=== PATIENT | male | born 1940 | race African-American/Black ===

== ENCOUNTER 2019-02-10 21:57 | Inpatient (IN) ==
[2019-02-11] MEDS ORDERED: GLUCAGON 1 MG VIAL IM PRN ×3 (00:29→12:43)
[2019-02-11] MEDS ORDERED: ACETAMINOPHEN 325 MG TABLET PO PRN (00:29)
[2019-02-11] MEDS ORDERED: DEXTROSE 50% 25 GM/50 ML VIAL IV PRN ×3 (00:29→12:43)
[2019-02-11] MEDS ORDERED: DOCUSATE SODIUM 100 MG CAPSULE PO PRN (00:29)
[2019-02-11] MEDS ORDERED: MORPHINE 4 MG/1 ML VIAL IV PRN (00:29)
[2019-02-11] MEDS ORDERED: ONDANSETRON 4 MG/2 ML VIAL IV PRN (00:29)
[2019-02-11] MEDS ORDERED: SODIUM CHLORIDE 0.9% 1,000 ML IV SCH ×2 (01:00→13:00)
[2019-02-11] MEDS ORDERED: ENOXAPARIN 80 MG/0.8 ML SYRINGE SUBCUT SCH ×3 (01:00→21:00)
[2019-02-11] MEDS ORDERED: PNEUMOCOCCAL VACCINE (13 VALENT) 0.5 ML SYRINGE IM ONE (01:24)
[2019-02-11] MEDS: INSULIN REGULAR 100 UNIT/ML SUBCUT SCH ×5 (01:57→21:10)
[2019-02-11 05:01] LABS: Basophils % 0.8 % (0.0-0.8); Eosinophils # 0.3 10*3/uL (0.0-0.87); Eosinophils % 5.4 % (0.00-10.9); Hematocrit 31.3 VOL% (42.0-52.0); Hemoglobin 9.8 GM/DL (14.0-18.0); Immature Granulocytes % 0.4 %; Immature Granulocytes Absolute 0.02 #; Lymphocytes # 1.9 10*3/uL (1.4-4.0); Lymphocytes % 34.9 % (21.2-54.2); Mean Corpuscular HGB Conc 31.3 GM/DL (32-36); Mean Corpuscular Volume 96.6 FL (87-102); Mean Platelet Volume 12.8 FL (9.6-12.0); Monocytes % 9.8 % (1.7-12.7); Neutrophils % 48.7 % (38.7-73.9); Platelet Count 121 T/CUMM (130-400); Red Blood Count 3.24 MC/CUMM (3.8-5.5); Red Cell Distribution Width 13.3 % (9.3-17.3); White Blood Count 5.3 T/CUMM (4-12)
[2019-02-11 05:39] LABS: Calcium 8.3 MG/DL (8.5-10.1); Osmolality,Calculated 296.3 MOS/KG (273-304)
[2019-02-11] MEDS ORDERED: MAGNESIUM SULF RIDER 2 GM in PREMIX 1 EACH IV PRN (07:09)
[2019-02-11] MEDS ORDERED: POTASSIUM CHLORIDE RIDER 10 MEQ in PREMIX 1 EACH IV PRN (07:09)
[2019-02-11] MEDS ORDERED: oxyCODONE/ACETAMINOPHEN 5-325 MG TABLET PO PRN (07:46)
[2019-02-11] MEDS ORDERED: DIAZEPAM 5 MG TABLET PO ONE (07:59)
[2019-02-11] MEDS ORDERED: diphenhydrAMINE CAP 25 MG CAPSULE PO ONE (07:59)
[2019-02-11] MEDS: SODIUM CHLORIDE 0.9% 1,000 ML IV SCH ×2 (08:09→13:05)
[2019-02-11 08:21] LABS: Calcium 8.1 MG/DL (8.5-10.1); Osmolality,Calculated 293.3 MOS/KG (273-304)
[2019-02-11 08:40] LABS: Alanine Aminotransferase 15 U/L (16-61); Albumin 2.9 G/DL (3.4-5.0); Alkaline Phosphatase 69 U/L (45-117); Aspartate Amino Transferase 25 U/L (0-37); Bilirubin,Direct < 0.100 MG/DL (0.0-0.20); Bilirubin,Indirect 0.3 MG/DL (0.0-1.0); Bilirubin,Total < 0.39 MG/DL (0.2-1.0); Total Protein 5.5 G/DL (6.4-8.3)
[2019-02-11 08:41] LABS: Risk Ratio 3.12; VLDL CHOLESTEROL 17.4 MG/DL
[2019-02-11] MEDS ORDERED: LOSARTAN 50 MG TABLET PO SCH (09:00)
[2019-02-11] MEDS ORDERED: METOPROLOL TARTRATE 50 MG TABLET PO SCH (09:00)
[2019-02-11] MEDS ORDERED: LISINOPRIL 20 MG TABLET PO SCH (09:00)
[2019-02-11] MEDS ORDERED: ERGOCALCIFEROL 50,000 UNIT CAPSULE PO SCH (09:00)
[2019-02-11] MEDS ORDERED: ATORVASTATIN 40 MG TABLET PO SCH (09:00)
[2019-02-11] MEDS: NICOTINE 21 MG/24 HR PATCH TRANSDERM SCH (11:03)
[2019-02-11] MEDS: ASPIRIN EC 81 MG TABLET PO SCH (11:03)
[2019-02-11] MEDS: amLODIPine 10 MG TABLET PO SCH (11:03)
[2019-02-11] MEDS: BUDESONIDE/FORMOTEROL 80-4.5 INHALER 6.9 GM INH SCH ×2 (11:03→21:10)
[2019-02-11] MEDS: CLOPIDOGREL 75 MG TABLET PO SCH (11:03)
[2019-02-11] MEDS: glipiZIDE 5 MG TABLET PO SCH ×2 (11:04→22:48)
[2019-02-11] MEDS: PANTOPRAZOLE 40 MG TABLET PO SCH (11:04)
[2019-02-11] MEDS: ATORVASTATIN 40 MG TABLET PO SCH (11:04)
[2019-02-11] MEDS: GABAPENTIN 300 MG CAPSULE PO SCH (11:04)
[2019-02-11] MEDS ORDERED: LIDOCAINE 1% 20 ML VIAL ONE (11:31)
[2019-02-11] MEDS ORDERED: MIDAZOLAM 2 MG/2 ML VIAL ONE (11:31)
[2019-02-11] MEDS ORDERED: fentaNYL 100 MCG/2 ML VIAL ONE (11:31)
[2019-02-11] MEDS ORDERED: VERAPAMIL 5 MG/2 ML VIAL ONE (11:40)
[2019-02-11] MEDS ORDERED: NITROGLYCERIN DRIP 50 MG/250 ML BOTTLE IV ONE (11:40)
[2019-02-11] MEDS ORDERED: ENOXAPARIN 60 MG/0.6 ML SYRINGE ONE (11:58)
[2019-02-11] MEDS ORDERED: TIROFIBAN 5,000 MCG/100 ML PREMIX IV ONE (12:00)
[2019-02-11] MEDS ORDERED: TIROFIBAN 5,000 MCG/100 ML PREMIX IV SCH (12:07)
[2019-02-11] MEDS ORDERED: CLOPIDOGREL 300 MG TABLET ONE (12:31)
[2019-02-11] MEDS: METOPROLOL TARTRATE 25 MG TABLET PO SCH ×2 (15:17→21:10)
[2019-02-11] MEDS ORDERED: SILVER NITRATE STICK 1 EACH TOP ONE (17:26)
[2019-02-11] MEDS ORDERED: COCAINE SUBSTITUTE 30 ML BOTTLE TOP ONE (17:28)
[2019-02-11] MEDS ORDERED: LIDOCAINE 2% TOP JELLY 20 ML VIAL INTRAURETH ONE (17:45)
[2019-02-11] MEDS ORDERED: hydrALAZINE 20 MG/1 ML VIAL IV ONE (18:00)
[2019-02-12 05:55] LABS: Basophils % 0.4 % (0.0-0.8); Eosinophils # 0.2 10*3/uL (0.0-0.87); Eosinophils % 2.8 % (0.00-10.9); Hematocrit 36.4 VOL% (42.0-52.0); Hemoglobin 11.5 GM/DL (14.0-18.0); Immature Granulocytes % 0.4 %; Immature Granulocytes Absolute 0.03 #; Lymphocytes # 1.5 10*3/uL (1.4-4.0); Lymphocytes % 21.1 % (21.2-54.2); Mean Corpuscular HGB Conc 31.6 GM/DL (32-36); Mean Platelet Volume 13.1 FL (9.6-12.0); Monocytes % 10.2 % (1.7-12.7); Neutrophils % 65.1 % (38.7-73.9); Platelet Count 143 T/CUMM (130-400); Red Blood Count 3.79 MC/CUMM (3.8-5.5); Red Cell Distribution Width 13.2 % (9.3-17.3); White Blood Count 7.1 T/CUMM (4-12)
[2019-02-12 06:39] LABS: Blood Urea Nitrogen 17 MG/DL (7-18); Calcium 8.5 MG/DL (8.5-10.1); Glucose 115 MG/DL (74-106); Osmolality,Calculated 290.7 MOS/KG (273-304)
[2019-02-12 06:43] LABS: % Iron Saturation 18.8 % (18-50); Ferritin 39.1 ng/ml (26-388)
[2019-02-12 07:52] VITALS: BP 193/85
[2019-02-12] MEDS: NICOTINE 21 MG/24 HR PATCH TRANSDERM SCH (08:35)
[2019-02-12] MEDS: glipiZIDE 5 MG TABLET PO SCH (08:35)
[2019-02-12] MEDS: ASPIRIN EC 81 MG TABLET PO SCH (08:35)
[2019-02-12] MEDS: ATORVASTATIN 40 MG TABLET PO SCH (08:35)
[2019-02-12] MEDS: INSULIN REGULAR 100 UNIT/ML SUBCUT SCH ×2 (08:36→12:23)
[2019-02-12] MEDS: PANTOPRAZOLE 40 MG TABLET PO SCH (08:36)
[2019-02-12] MEDS: amLODIPine 10 MG TABLET PO SCH (08:36)
[2019-02-12] MEDS: CLOPIDOGREL 75 MG TABLET PO SCH (08:36)
[2019-02-12] MEDS: GABAPENTIN 300 MG CAPSULE PO SCH (08:36)
[2019-02-12] MEDS: METOPROLOL TARTRATE 25 MG TABLET PO SCH (08:36)
[2019-02-12] MEDS: BUDESONIDE/FORMOTEROL 80-4.5 INHALER 6.9 GM INH SCH (08:37)
[2019-02-12] MEDS ORDERED: PRAZOSIN 1 MG CAPSULE PO SCH (09:00)
== END 2019-02-12 12:45 | disposition home or self-care (01) | DRG 247 ==
LOC: N.TELES → SUATTDRO 23:25
PROVIDERS: ADMIT Internal Medicine; ATTEND Family Medicine
PROC: CLCCHCL (ICD-10-PCS; 2019-02-11 09:45)

== ENCOUNTER 2021-06-04 06:55 | Inpatient (IN) ==
[2021-06-04 07:25] LABS: Basophils # 0.1 10*3/uL (0.0-0.2); Basophils % 0.9 % (0.0-0.8); Eosinophils # 0.3 10*3/uL (0.0-0.87); Eosinophils % 6.2 % (0.00-10.9); Hemoglobin 9.6 GM/DL (14.0-18.0); Immature Granulocytes % 0.4 %; Immature Granulocytes Absolute 0.02 #; Lymphocytes # 1.1 10*3/uL (1.4-4.0); Lymphocytes % 21.6 % (21.2-54.2); Mean Platelet Volume 11.1 FL (9.6-12.0); Monocytes % 10.4 % (1.7-12.7); Neutrophils % 60.5 % (38.7-73.9); Platelet Count 186 T/CUMM (130-400); Red Blood Count 3.19 MC/CUMM (3.8-5.5); Red Cell Distribution Width 13.8 % (9.3-17.3); White Blood Count 5.3 T/CUMM (4-12)
[2021-06-04 07:46] LABS: Osmolality,Calculated 288.5 MOS/KG (273-304); Potassium 5.2 MMOL/L (3.5-5.1)
[2021-06-04] MEDS ORDERED: GABAPENTIN 400 MG CAPSULE PO ONE (08:05)
[2021-06-04] MEDS ORDERED: FAMOTIDINE 20 MG TABLET PO ONE (08:05)
[2021-06-04] MEDS ORDERED: LACTATED RINGERS 1,000 ML IV SCH ×2 (08:30→13:00)
[2021-06-04] MEDS ORDERED: fentaNYL 100 MCG/2 ML VIAL ONE (10:35)
[2021-06-04] MEDS ORDERED: LIDOCAINE 2% 5 ML VIAL ONE (10:36)
[2021-06-04] MEDS ORDERED: ONDANSETRON 4 MG/2 ML VIAL ONE (10:36)
[2021-06-04] MEDS ORDERED: ROCURONIUM 50 MG/5 ML VIAL IV ONE (10:36)
[2021-06-04] MEDS ORDERED: propofoL 200 MG/20 ML VIAL IV ONE (10:36)
[2021-06-04] MEDS ORDERED: DEXAMETHASONE 4 MG/1 ML VIAL ONE ×2 (10:37→17:17)
[2021-06-04] MEDS ORDERED: BUPIVACAINE MPF 0.25% 30 ML VIAL ONE (10:39)
[2021-06-04] MEDS ORDERED: LIDOCAINE 1%/EPI INJ 20 ML VIAL ONE (10:39)
[2021-06-04] MEDS ORDERED: ePHEDrine 50 MG/ML VIAL ONE (11:19)
[2021-06-04] MEDS ORDERED: DESFLURANE 1 UNIT/15 MINUTE INH ONE (11:43)
[2021-06-04] MEDS ORDERED: HYDROmorphone 2 MG/1 ML VIAL IV PRN ×2 (12:18)
[2021-06-04] MEDS ORDERED: ONDANSETRON 4 MG/2 ML VIAL IV PRN (12:18)
[2021-06-04] MEDS ORDERED: ACETAMINOPHEN 325 MG TABLET PO PRN (12:18)
[2021-06-04] MEDS ORDERED: BISACODYL 5 MG TABLET PO PRN (12:18)
[2021-06-04] MEDS ORDERED: ALBUTEROL/IPRATROPIUM 3 ML NEB RESP TX PRN (12:18)
[2021-06-04] MEDS ORDERED: INFLUENZA VIRUS VACCINE 0.5 ML SYRINGE IM ONE (13:02)
[2021-06-04] MEDS: SODIUM CHLORIDE 0.9% 1,000 ML IV SCH ×2 (13:31→18:32)
[2021-06-04] MEDS: GABAPENTIN 300 MG CAPSULE PO SCH ×2 (14:52→21:20)
[2021-06-04] MEDS ORDERED: diphenhydrAMINE 50 MG/1 ML VIAL IV ONE (16:24)
[2021-06-04] MEDS ORDERED: MORPHINE 2 MG/1 ML SYRINGE IV PRN ×2 (16:27→16:32)
[2021-06-04] MEDS ORDERED: FAMOTIDINE 20 MG/2 ML VIAL IV ONE ×2 (17:24→17:28)
[2021-06-04] MEDS: METOPROLOL TARTRATE 25 MG TABLET PO SCH (21:20)
[2021-06-04] MEDS: ATORVASTATIN 40 MG TABLET PO SCH (21:20)
[2021-06-04] MEDS: PRAZOSIN 1 MG CAPSULE PO SCH (21:20)
[2021-06-05] MEDS: SODIUM CHLORIDE 0.9% 1,000 ML IV SCH ×3 (02:32→19:02)
[2021-06-05 06:29] LABS: Basophils % 0.2 % (0.0-0.8); Hematocrit 31.7 VOL% (42.0-52.0); Hemoglobin 9.7 GM/DL (14.0-18.0); Immature Granulocytes % 0.3 %; Immature Granulocytes Absolute 0.03 #; Lymphocytes # 0.6 10*3/uL (1.4-4.0); Mean Corpuscular HGB Conc 30.6 GM/DL (32-36); Mean Corpuscular Volume 95.2 FL (87-102); Mean Platelet Volume 11.8 FL (9.6-12.0); Monocytes % 5.4 % (1.7-12.7); Neutrophils % 87.1 % (38.7-73.9); Platelet Count 174 T/CUMM (130-400); Red Blood Count 3.33 MC/CUMM (3.8-5.5); Red Cell Distribution Width 13.8 % (9.3-17.3); White Blood Count 9.1 T/CUMM (4-12)
[2021-06-05 06:51] LABS: Calcium 8.9 MG/DL (8.5-10.1); Osmolality,Calculated 294.5 MOS/KG (273-304); Potassium 5.6 MMOL/L (3.5-5.1)
[2021-06-05 07:08] LABS: % Iron Saturation 8.4 % (18-50); Ferritin 125.3 ng/mL (26-388)
[2021-06-05] MEDS: amLODIPine 10 MG TABLET PO SCH (10:00)
[2021-06-05] MEDS: ASPIRIN CHEW 81 MG TABLET PO SCH (10:00)
[2021-06-05] MEDS: GABAPENTIN 300 MG CAPSULE PO SCH ×3 (10:00→20:18)
[2021-06-05] MEDS: METOPROLOL TARTRATE 25 MG TABLET PO SCH ×2 (10:00→20:18)
[2021-06-05] MEDS: PRAZOSIN 1 MG CAPSULE PO SCH ×2 (10:00→20:18)
[2021-06-05] MEDS: PANTOPRAZOLE 40 MG TABLET PO SCH (10:00)
[2021-06-05 10:28] LABS: Calcium 8.9 MG/DL (8.5-10.1); Osmolality,Calculated 298.1 MOS/KG (273-304)
[2021-06-05 10:30] LABS: Potassium 6.1 MMOL/L (3.5-5.1)
[2021-06-05] MEDS ORDERED: FUROSEMIDE 100 MG/10 ML VIAL IV ONE ×2 (14:45→16:00)
[2021-06-05] MEDS: ATORVASTATIN 40 MG TABLET PO SCH (20:18)
[2021-06-06] MEDS: SODIUM CHLORIDE 0.9% 1,000 ML IV SCH ×3 (03:22→21:36)
[2021-06-06 06:15] LABS: Calcium 8.5 MG/DL (8.5-10.1); Osmolality,Calculated 304.7 MOS/KG (273-304); Potassium 4.9 MMOL/L (3.5-5.1)
[2021-06-06] MEDS: amLODIPine 10 MG TABLET PO SCH ×2 (08:24→08:35)
[2021-06-06] MEDS: PRAZOSIN 1 MG CAPSULE PO SCH ×3 (08:24→21:30)
[2021-06-06] MEDS: ASPIRIN CHEW 81 MG TABLET PO SCH (08:24)
[2021-06-06] MEDS: GABAPENTIN 300 MG CAPSULE PO SCH ×3 (08:24→21:31)
[2021-06-06] MEDS: METOPROLOL TARTRATE 25 MG TABLET PO SCH ×2 (08:24→21:30)
[2021-06-06] MEDS: PANTOPRAZOLE 40 MG TABLET PO SCH (08:24)
[2021-06-06] MEDS: ATORVASTATIN 40 MG TABLET PO SCH (21:30)
[2021-06-07] MEDS: SODIUM CHLORIDE 0.9% 1,000 ML IV SCH (05:49)
[2021-06-07] MEDS: amLODIPine 10 MG TABLET PO SCH (09:10)
[2021-06-07] MEDS: METOPROLOL TARTRATE 25 MG TABLET PO SCH ×2 (09:10→20:57)
[2021-06-07] MEDS: ASPIRIN CHEW 81 MG TABLET PO SCH (09:10)
[2021-06-07] MEDS: GABAPENTIN 300 MG CAPSULE PO SCH ×3 (09:10→20:56)
[2021-06-07] MEDS: PRAZOSIN 1 MG CAPSULE PO SCH ×2 (09:10→20:56)
[2021-06-07] MEDS: PANTOPRAZOLE 40 MG TABLET PO SCH (09:10)
[2021-06-07] MEDS ORDERED: GLUCAGON 1 MG VIAL IM PRN (09:41)
[2021-06-07] MEDS ORDERED: DEXTROSE 50% 25 GM/50 ML VIAL IV PRN (09:41)
[2021-06-07] MEDS ORDERED: NICOTINE 14 MG/24 HR PATCH TRANSDERM PRN (09:47)
[2021-06-07] MEDS: INSULIN LISPRO 100 UNIT/ML SUBCUT SCH ×3 (12:12→20:54)
[2021-06-07 16:40] LABS: Bacteria,Urine Occasional /HPF (Few); Bilirubin,Urine Negative (Negative); Blood, Urine Negative (Negative); Glucose,Urine (UA) 50 mg/dL (Negative); Hyaline Casts,Urine 1 /LPF (0-3); Ketones,Urine Negative (Negative); Mucus,Urine Occasional /LPF (Occasional); Nitrite,Urine Negative (Negative); Protein,Urine Negative; RBC,Urine <1 /HPF (0-4); Squamous Epithelial Cell,Urine Occasional /HPF (0-10); Urine Appearance CLEAR (Clear); Urine Color Straw (Yellow); Urine Specific Gravity 1.009 (1.001-1.035); Urine Urobilinogen < 2.0 EU/DL (0.2-1.0)
[2021-06-07] MEDS: ATORVASTATIN 40 MG TABLET PO SCH (20:56)
[2021-06-08 05:36] LABS: Basophils % 0.5 % (0.0-0.8); Eosinophils # 0.3 10*3/uL (0.0-0.87); Hematocrit 25.9 VOL% (42.0-52.0); Hemoglobin 8.3 GM/DL (14.0-18.0); Immature Granulocytes % 0.5 %; Immature Granulocytes Absolute 0.03 #; Lymphocytes % 16.5 % (21.2-54.2); Mean Corpuscular Volume 93.5 FL (87-102); Mean Platelet Volume 12.3 FL (9.6-12.0); Neutrophils % 68.5 % (38.7-73.9); Platelet Count 148 T/CUMM (130-400); Red Blood Count 2.77 MC/CUMM (3.8-5.5); Red Cell Distribution Width 14.2 % (9.3-17.3); White Blood Count 6.3 T/CUMM (4-12)
[2021-06-08 06:03] LABS: Calcium 8.7 MG/DL (8.5-10.1); Potassium 4.1 MMOL/L (3.5-5.1)
[2021-06-08] MEDS: INSULIN LISPRO 100 UNIT/ML SUBCUT SCH ×3 (08:09→16:50)
[2021-06-08] MEDS: METOPROLOL TARTRATE 25 MG TABLET PO SCH (08:43)
[2021-06-08] MEDS: GABAPENTIN 300 MG CAPSULE PO SCH ×2 (08:43→16:05)
[2021-06-08] MEDS: PANTOPRAZOLE 40 MG TABLET PO SCH (08:44)
[2021-06-08] MEDS: ASPIRIN CHEW 81 MG TABLET PO SCH (08:44)
[2021-06-08] MEDS: amLODIPine 10 MG TABLET PO SCH (08:44)
[2021-06-08] MEDS: PRAZOSIN 1 MG CAPSULE PO SCH (08:44)
[2021-06-08 11:40] VITALS: BP 130/73
[2021-06-08] MEDS ORDERED: INFLUENZA VIRUS VACCINE 0.5 ML SYRINGE IM ONE (17:30)
== END 2021-06-08 17:20 | disposition home health service (06) | DRG 330 ==
LOC: N.3E 06:55 → N.OR 06:55 → N.SDSINP 06:57 → N.3E 12:43 → N.ICU 17:50 → N.3E 06-05 14:49 → SUATTDRO 06-05 15:59
PROVIDERS: ADMIT Surgery; ATTEND Surgery

== ENCOUNTER 2021-11-03 09:24 | Inpatient (IN) ==
[2021-11-03 11:47] LABS: Basophils % 0.5 % (0.0-0.8); Eosinophils # 0.1 10*3/uL (0.0-0.87); Eosinophils % 1.2 % (0.00-10.9); Hemoglobin 11.5 GM/DL (14.0-18.0); Immature Granulocytes % 0.9 %; Immature Granulocytes Absolute 0.04 #; Lymphocytes # 0.2 10*3/uL (1.4-4.0); Lymphocytes % 5.6 % (21.2-54.2); Mean Corpuscular HGB Conc 31.9 GM/DL (32-36); Mean Platelet Volume 11.5 FL (9.6-12.0); Monocytes % 8.5 % (1.7-12.7); Neutrophils % 83.3 % (38.7-73.9); Platelet Count 158 T/CUMM (130-400); Red Blood Count 3.83 MC/CUMM (3.8-5.5); White Blood Count 4.3 T/CUMM (4-12)
[2021-11-03 11:55] LABS: Mucus,Urine Occasional /LPF (Occasional); RBC,Urine 2 /HPF (0-4); Squamous Epithelial Cell,Urine Occasional /HPF (0-10)
[2021-11-03 11:56] LABS: Bilirubin,Urine Negative (Negative); Blood, Urine Trace mg/dL (Negative); Glucose,Urine (UA) Negative (Negative); Ketones,Urine Negative (Negative); Nitrite,Urine Negative (Negative); Protein,Urine 1+ mg/dL (Negative); Urine Appearance Clear (Clear); Urine Color Yellow (Yellow); Urine Urobilinogen 0.2 eU/dL (<2.0)
[2021-11-03 11:57] LABS: PT Patient Result 11.6 SECS (10.5-12.0)
[2021-11-03 12:24] LABS: Albumin 3.3 G/DL (3.4-5.0); Bilirubin,Total 1.1 MG/DL (0.20-1.00); Calcium 9.1 MG/DL (8.5-10.1); Osmolality,Calculated 293.7 MOS/KG (273-304); Potassium 5.3 MMOL/L (3.5-5.1); Total Protein 7.3 G/DL (6.4-8.2)
[2021-11-03] MEDS ORDERED: SODIUM CHLORIDE 0.9% 1,000 ML IV STA (13:08)
[2021-11-03] MEDS ORDERED: DEXAMETHASONE 4 MG/1 ML VIAL IV STA (15:21)
[2021-11-03] MEDS ORDERED: ONDANSETRON 4 MG/2 ML VIAL IV PRN (18:41)
[2021-11-03] MEDS ORDERED: GLUCAGON 1 MG VIAL IM PRN (18:41)
[2021-11-03] MEDS ORDERED: ACETAMINOPHEN 325 MG TABLET PO PRN (18:41)
[2021-11-03] MEDS ORDERED: DEXTROSE 50% 25 GM/50 ML VIAL IV PRN (18:50)
[2021-11-03] MEDS ORDERED: DOCUSATE SODIUM 100 MG CAPSULE PO PRN (18:51)
[2021-11-03] MEDS ORDERED: NICOTINE 21 MG/24 HR PATCH TRANSDERM PRN (18:51)
[2021-11-03] MEDS ORDERED: traZODone 50 MG TABLET PO PRN (18:51)
[2021-11-03] MEDS ORDERED: LEVOFLOXACIN INJ 500 MG/100 ML PREMIX IV ONE (19:00)
[2021-11-03] MEDS ORDERED: DEXTROSE 10% 250 ML BAG IV PRN (19:33)
[2021-11-03] MEDS: hydrALAZINE 20 MG/1 ML VIAL IV PRN (22:01)
[2021-11-03] MEDS ORDERED: SODIUM CHLORIDE 0.45% 1,000 ML IV SCH (22:30)
[2021-11-03] MEDS: INSULIN GLARGINE 100 UNIT/ML SUBCUT SCH (23:11)
[2021-11-03] MEDS: INSULIN REGULAR 100 UNIT/ML SUBCUT SCH (23:11)
[2021-11-04] MEDS: ENOXAPARIN 40 MG/0.4 ML SYRINGE SUBCUT SCH ×2 (02:00→21:20)
[2021-11-04] MEDS: HYDROmorphone 1 MG/1 ML SYRINGE IV PRN ×2 (05:22→11:16)
[2021-11-04 05:24] LABS: Basophils % 0.5 % (0.0-0.8); Eosinophils % 0.2 % (0.00-10.9); Hematocrit 31.9 VOL% (42.0-52.0); Hemoglobin 10.1 GM/DL (14.0-18.0); Immature Granulocytes % 0.7 %; Immature Granulocytes Absolute 0.03 #; Lymphocytes # 0.2 10*3/uL (1.4-4.0); Lymphocytes % 3.8 % (21.2-54.2); Mean Corpuscular HGB Conc 31.7 GM/DL (32-36); Mean Corpuscular Volume 95.2 FL (87-102); Mean Platelet Volume 12.4 FL (9.6-12.0); Monocytes % 6.6 % (1.7-12.7); Neutrophils % 88.2 % (38.7-73.9); Platelet Count 148 T/CUMM (130-400); Red Blood Count 3.35 MC/CUMM (3.8-5.5); Red Cell Distribution Width 17.1 % (9.3-17.3); White Blood Count 4.4 T/CUMM (4-12)
[2021-11-04 05:46] LABS: Eosinophils 1 % (0-10); Hypochromia Slight; Lymphocytes 3 % (20-55); Microcytosis Slight; Platelet Estimate Adequate; Segmented Neutrophils 90 % (50-85); Total Cells Counted 100
[2021-11-04 05:52] LABS: Calcium 9.3 MG/DL (8.5-10.1); Osmolality,Calculated 295.7 MOS/KG (273-304); Potassium 4.4 MMOL/L (3.5-5.1)
[2021-11-04] MEDS: ALBUTEROL/IPRATROPIUM 3 ML NEB RESP TX SCH ×3 (07:57→19:57)
[2021-11-04] MEDS: POLYETHYLENE GLYCOL POWDER 17 GM PACK PO SCH ×2 (09:07→21:20)
[2021-11-04] MEDS: INSULIN REGULAR 100 UNIT/ML SUBCUT SCH ×4 (09:07→22:27)
[2021-11-04] MEDS: DOCUSATE SODIUM 100 MG CAPSULE PO SCH ×2 (09:08→21:20)
[2021-11-04] MEDS: PANTOPRAZOLE 40 MG TABLET PO SCH (09:08)
[2021-11-04] MEDS: LINACLOTIDE 145 MCG CAPSULE PO SCH (09:08)
[2021-11-04] MEDS: DEXAMETHASONE 10 MG/1 ML VIAL IV SCH (09:11)
[2021-11-04] MEDS: hydrALAZINE 20 MG/1 ML VIAL IV PRN (09:12)
[2021-11-04] MEDS ORDERED: fentaNYL 25 MCG/HR PATCH TRANSDERM SCH (12:00)
[2021-11-04] MEDS ORDERED: LEVOFLOXACIN INJ 250 MG/50 ML PREMIX IV SCH (20:00)
[2021-11-04] MEDS: INSULIN GLARGINE 100 UNIT/ML SUBCUT SCH (22:21)
[2021-11-05] MEDS: ALBUTEROL/IPRATROPIUM 3 ML NEB RESP TX SCH ×3 (00:22→12:17)
[2021-11-05 06:21] LABS: Basophils % 0.2 % (0.0-0.8); Eosinophils # 0.1 10*3/uL (0.0-0.87); Eosinophils % 1.1 % (0.00-10.9); Hematocrit 31.3 VOL% (42.0-52.0); Immature Granulocytes % 0.7 %; Immature Granulocytes Absolute 0.03 #; Lymphocytes # 0.3 10*3/uL (1.4-4.0); Lymphocytes % 7.1 % (21.2-54.2); Mean Corpuscular HGB Conc 31.9 GM/DL (32-36); Mean Corpuscular Volume 95.1 FL (87-102); Monocytes % 14.2 % (1.7-12.7); Neutrophils % 76.7 % (38.7-73.9); Platelet Count 157 T/CUMM (130-400); Red Blood Count 3.29 MC/CUMM (3.8-5.5); Red Cell Distribution Width 17.2 % (9.3-17.3); White Blood Count 4.5 T/CUMM (4-12)
[2021-11-05 06:35] LABS: Calcium 8.6 MG/DL (8.5-10.1); Osmolality,Calculated 293.5 MOS/KG (273-304); Potassium 5.2 MMOL/L (3.5-5.1)
[2021-11-05] MEDS: INSULIN REGULAR 100 UNIT/ML SUBCUT SCH ×2 (08:43→12:17)
[2021-11-05] MEDS: POLYETHYLENE GLYCOL POWDER 17 GM PACK PO SCH (09:11)
[2021-11-05] MEDS: PANTOPRAZOLE 40 MG TABLET PO SCH (09:11)
[2021-11-05] MEDS: DOCUSATE SODIUM 100 MG CAPSULE PO SCH (09:11)
[2021-11-05] MEDS: DEXAMETHASONE 10 MG/1 ML VIAL IV SCH (09:12)
[2021-11-05] MEDS: LINACLOTIDE 145 MCG CAPSULE PO SCH (09:12)
[2021-11-05 12:38] VITALS: BP 189/98
== END 2021-11-05 13:15 | disposition hospice, home (50) | DRG 543 ==
LOC: N.ED 09:24 → N.EDINP 18:38 → SUATTDRO 18:38 → N.EDINP 21:15 → N.TELES 21:21
PROVIDERS: ADMIT Hospitalist; ATTEND Internal Medicine Geriatric Medicine